=== PATIENT | male | born 1940 | race African-American/Black ===

== ENCOUNTER 2017-11-19 19:19 | Emergency (ER) | payer SELFPAY ==
[~2017-11-19] VITALS: Ht 165.1 cm; Wt 165.0 kg
[2017-11-19 23:59] VITALS: BP 144/75
== END 2017-11-20 00:01 | disposition home or self-care (01) ==
LOC: ER 19:19
DX: H61.21 Impacted cerumen, right ear (principal); I10 Essential (primary) hypertension
CPT/HCPCS: 69210; 99284

== ENCOUNTER 2019-12-13 19:34 | Inpatient (IN) | payer MEDICAID ==
[~2019-12-13] VITALS: Ht 177.8 cm; Wt 83.9 kg
[2019-12-13] MEDS ORDERED: SODIUM CHLORIDE 0.9% 1,000 ML IV ONE (21:10)
[2019-12-13] MEDS ORDERED: KETOROLAC 30MG/ML VIAL IV STA (21:10)
[2019-12-13 21:51] LABS: CHLORIDE 112 mEq/L (98-107); HEMATOCRIT. 48.1 % (42.0-52.0); HEMOGLOBIN. 15.6 g/dL (14.0-18.0); MEAN CORPUSCULAR HEMOGLOBIN 21.7 pg (28.0-32.0); MEAN CORPUSCULAR VOLUME 67.1 fL (80.0-94.0); MEAN PLATELET VOLUME 8.3 fl (7.4-10.4); PLATELET 181 x1000/uL (130-400); RED BLOOD CELL COUNT 7.17 mill/uL (4.7-6.1); RED CELL DISTRIBUTION WIDTH 17.4 % (11.6-14.6)
[2019-12-13 21:56] LABS: INR 1.1; PROTHROMBIN TIME 11.2 sec (9.6-11.0)
[2019-12-13 22:33] LABS: PLATELET ESTIMATE NORMAL
[2019-12-13] MEDS ORDERED: APIXABAN 5 MG TABLET PO STA (23:48)
[2019-12-14 00:09] LABS: CLARITY URINE CLEAR (CLEAR); COLOR URINE YELLOW (YELLOW); KETONES URINE NEGATIVE (NEGATIVE); LEUKOCYTE ESTERASE URINE NEGATIVE (NEGATIVE); NITRITE URINE NEGATIVE (NEGATIVE); OCCULT BLOOD URINE NEGATIVE (NEGATIVE); PROTEIN URINE NEGATIVE (NEGATIVE); UROBILINOGEN URINE 0.2 E.U./dL (0.2-1.0)
[2019-12-14] MEDS ORDERED: ONDANSETRON HCL 4MG/2ML INJ IV PRN (00:15)
[2019-12-14] MEDS ORDERED: ACETAMINOPHEN 325MG TABLET PO PRN ×2 (00:15)
[2019-12-14] MEDS ORDERED: LORAZEPAM 0.5MG TABLET PO PRN (00:15)
[2019-12-14] MEDS ORDERED: DOCUSATE SODIUM 100MG CAPSULE PO PRN (00:15)
[2019-12-14] MEDS ORDERED: IPRATROPIUM/ALBUTEROL 0.5-3(2.5)MG/3ML NEB HHN PRN (00:15)
[2019-12-14 08:30] VITALS: BP 142/76
[2019-12-14] MEDS ORDERED: APIXABAN 5 MG TABLET PO SCH (09:00)
[2019-12-14 12:02] VITALS: BP 139/91
[2019-12-14] MEDS ORDERED: HEPARIN 25,000 UNITS PREMIX 250 ML IV SCH (13:30)
[2019-12-14 15:27] LABS: INR 1.2; PARTIAL THROMBOPLASTIN TIME 31.8 sec (23.4-31.0); PROTHROMBIN TIME 12.3 sec (9.6-11.0)
[2019-12-14 15:59] VITALS: BP_SYST 129; BP_SYST 139; BP_DIAS 54; BP_DIAS 91
[2019-12-14 20:00] VITALS: BP 128/77
[2019-12-14] MEDS ORDERED: HEPARIN 25,000 UNITS PREMIX 250 ML IV PRN (21:00)
[2019-12-14] MEDS ORDERED: HEPARIN 5000 UNITS/ML VIAL IV PRN ×2 (21:00)
[2019-12-15] VITALS (7 sets, daily range): BP systolic 131–162; BP diastolic 70–86
[2019-12-15 04:09] LABS: BASOPHILS % 1.4 % (0.0-2.0); EOSINOPHILS % 4.7 % (0.0-5.0); HEMOGLOBIN. 14.7 g/dL (14.0-18.0); LYMPHOCYTES % 15.1 % (20.0-50.0); MEAN CORPUSCULAR HEMOGLOBIN 21.3 pg (28.0-32.0); MEAN CORPUSCULAR VOLUME 66.8 fL (80.0-94.0); MEAN PLATELET VOLUME 7.9 fl (7.4-10.4); MONOCYTES % 4.6 % (2.0-8.0); NEUTROPHILS % 74.2 % (40.0-76.0); PLATELET 188 x1000/uL (130-400); RED BLOOD CELL COUNT 6.89 mill/uL (4.7-6.1); RED CELL DISTRIBUTION WIDTH 17.5 % (11.6-14.6)
[2019-12-15 04:22] LABS: PLATELET ESTIMATE NORMAL
[2019-12-15 04:30] LABS: PHOSPHORUS 3.9 mg/dL (2.5-4.9)
[2019-12-15] MEDS: HYDROCODONE/ACETAMINOPHEN 5/325MG TABLET PO PRN (08:59)
[2019-12-15] MEDS: APIXABAN 5 MG TABLET PO SCH ×2 (11:29→17:27)
[2019-12-15] MEDS: AMLODIPINE 5MG TABLET PO SCH (11:29)
[2019-12-16] VITALS (54 sets, daily range): BP systolic 131–178; BP diastolic 61–99
[2019-12-16 07:44] LABS: BASOPHILS % 0.4 % (0.0-2.0); EOSINOPHILS % 3.4 % (0.0-5.0); HEMATOCRIT. 47.1 % (42.0-52.0); HEMOGLOBIN. 14.8 g/dL (14.0-18.0); LYMPHOCYTES % 15.1 % (20.0-50.0); MEAN CORPUSCULAR HEMOGLOBIN 21.4 pg (28.0-32.0); MEAN PLATELET VOLUME 8.3 fl (7.4-10.4); MONOCYTES % 4.6 % (2.0-8.0); NEUTROPHILS % 76.5 % (40.0-76.0); PLATELET 201 x1000/uL (130-400); RED BLOOD CELL COUNT 6.91 mill/uL (4.7-6.1); RED CELL DISTRIBUTION WIDTH 17.6 % (11.6-14.6)
[2019-12-16] MEDS: APIXABAN 5 MG TABLET PO SCH (07:45)
[2019-12-16 08:05] LABS: PHOSPHORUS 3.5 mg/dL (2.5-4.9)
[2019-12-16] MEDS ORDERED: ALTEPLASE 100MG/VIAL IV ONE ×2 (08:30)
[2019-12-16] MEDS: AMLODIPINE 5MG TABLET PO SCH (08:53)
[2019-12-16] MEDS ORDERED: SODIUM BICARBONATE 4% (2.4MEQ) 5ML VIAL IV ONE (09:03)
[2019-12-16] MEDS ORDERED: LIDOCAINE HCL 1% 20ML VIAL (Pyxis) INJ ONE (09:04)
[2019-12-16] MEDS ORDERED: IOHEXOL-300 100 ML BOTTLE ONE (09:04)
[2019-12-16] MEDS ORDERED: ALTEPLASE INJ SCH (10:00)
[2019-12-16] MEDS ORDERED: SODIUM CHLORIDE 0.9% INJ SCH (10:00)
[2019-12-16] MEDS ORDERED: FENTANYL CITRATE/PF 50MCG/ML 2ML VIAL ONE ×2 (10:10→11:18)
[2019-12-16] MEDS ORDERED: FENTANYL CITRATE/PF 50MCG/ML 2ML VIAL IV ONE ×2 (11:15→12:15)
[2019-12-16] MEDS: ALTEPLASE INJ SCH ×4 (13:23→20:35)
[2019-12-16] MEDS: SODIUM CHLORIDE 0.9% INJ SCH ×4 (13:23→20:35)
[2019-12-16] MEDS: HEPARIN 25,000 UNITS PREMIX 250 ML IV SCH (13:28)
[2019-12-16] MEDS: HYDROCODONE/ACETAMINOPHEN 5/325MG TABLET PO PRN ×2 (17:31→21:15)
[2019-12-16 19:28] LABS: BASOPHILS % 0.3 % (0.0-2.0); EOSINOPHILS % 1.7 % (0.0-5.0); HEMATOCRIT. 46.8 % (42.0-52.0); LYMPHOCYTES % 7.6 % (20.0-50.0); MEAN CORPUSCULAR HEMOGLOBIN 21.7 pg (28.0-32.0); MEAN CORPUSCULAR VOLUME 67.7 fL (80.0-94.0); MEAN PLATELET VOLUME 8.5 fl (7.4-10.4); MONOCYTES % 3.3 % (2.0-8.0); NEUTROPHILS % 87.1 % (40.0-76.0); PLATELET 183 x1000/uL (130-400); RED BLOOD CELL COUNT 6.91 mill/uL (4.7-6.1); RED CELL DISTRIBUTION WIDTH 17.8 % (11.6-14.6)
[2019-12-16 20:36] LABS: INR 1.1; PARTIAL THROMBOPLASTIN TIME 33.1 sec (23.4-31.0); PROTHROMBIN TIME 11.7 sec (9.6-11.0)
[2019-12-17] VITALS (52 sets, daily range): BP systolic 132–189; BP diastolic 68–119
[2019-12-17 00:55] LABS: BASOPHILS % 0.3 % (0.0-2.0); EOSINOPHILS % 1.7 % (0.0-5.0); HEMATOCRIT. 45.5 % (42.0-52.0); HEMOGLOBIN. 14.6 g/dL (14.0-18.0); LYMPHOCYTES % 9.2 % (20.0-50.0); MEAN CORPUSCULAR HEMOGLOBIN 21.9 pg (28.0-32.0); MEAN CORPUSCULAR VOLUME 68.4 fL (80.0-94.0); MEAN PLATELET VOLUME 7.7 fl (7.4-10.4); MONOCYTES % 4.4 % (2.0-8.0); NEUTROPHILS % 84.4 % (40.0-76.0); PLATELET 166 x1000/uL (130-400); RED BLOOD CELL COUNT 6.65 mill/uL (4.7-6.1); RED CELL DISTRIBUTION WIDTH 17.5 % (11.6-14.6)
[2019-12-17 00:58] LABS: INR 1.2; PARTIAL THROMBOPLASTIN TIME 35.9 sec (23.4-31.0); PROTHROMBIN TIME 12.3 sec (9.6-11.0)
[2019-12-17] MEDS: SODIUM CHLORIDE 0.9% INJ SCH ×5 (06:25→16:59)
[2019-12-17] MEDS: ALTEPLASE INJ SCH ×5 (06:25→16:59)
[2019-12-17 07:03] LABS: BASOPHILS % 0.5 % (0.0-2.0); EOSINOPHILS % 1.8 % (0.0-5.0); HEMATOCRIT. 44.6 % (42.0-52.0); HEMOGLOBIN. 14.4 g/dL (14.0-18.0); LYMPHOCYTES % 10.4 % (20.0-50.0); MEAN CORPUSCULAR HEMOGLOBIN 21.6 pg (28.0-32.0); MEAN PLATELET VOLUME 8.5 fl (7.4-10.4); MONOCYTES % 4.8 % (2.0-8.0); NEUTROPHILS % 82.5 % (40.0-76.0); PLATELET 179 x1000/uL (130-400); RED BLOOD CELL COUNT 6.65 mill/uL (4.7-6.1); RED CELL DISTRIBUTION WIDTH 17.6 % (11.6-14.6)
[2019-12-17 07:11] LABS: INR 1.1; PROTHROMBIN TIME 11.9 sec (9.6-11.0)
[2019-12-17 07:15] LABS: PHOSPHORUS 3.2 mg/dL (2.5-4.9)
[2019-12-17] MEDS: HYDROCODONE/ACETAMINOPHEN 5/325MG TABLET PO PRN ×2 (07:25→21:16)
[2019-12-17] MEDS: AMLODIPINE 10MG TABLET PO SCH (09:00)
[2019-12-17] MEDS ORDERED: SODIUM BICARBONATE 4% (2.4MEQ) 5ML VIAL IV ONE (13:51)
[2019-12-17] MEDS ORDERED: LIDOCAINE HCL 1% 20ML VIAL (Pyxis) INJ ONE (13:51)
[2019-12-17] MEDS ORDERED: IOHEXOL-300 100 ML BOTTLE ONE (13:53)
[2019-12-17] MEDS: HEPARIN 25,000 UNITS PREMIX 250 ML IV SCH (16:59)
[2019-12-17 17:40] LABS: INR 1.2; PROTHROMBIN TIME 12.4 sec (9.6-11.0)
[2019-12-17 21:32] LABS: BASOPHILS % 0.3 % (0.0-2.0); EOSINOPHILS % 2.1 % (0.0-5.0); HEMATOCRIT. 46.3 % (42.0-52.0); HEMOGLOBIN. 14.9 g/dL (14.0-18.0); LYMPHOCYTES % 10.6 % (20.0-50.0); MEAN CORPUSCULAR HEMOGLOBIN 21.8 pg (28.0-32.0); MEAN CORPUSCULAR VOLUME 67.6 fL (80.0-94.0); MEAN PLATELET VOLUME 8.1 fl (7.4-10.4); MONOCYTES % 5.4 % (2.0-8.0); NEUTROPHILS % 81.6 % (40.0-76.0); PLATELET 165 x1000/uL (130-400); RED BLOOD CELL COUNT 6.86 mill/uL (4.7-6.1); RED CELL DISTRIBUTION WIDTH 18.2 % (11.6-14.6)
[2019-12-17 21:38] LABS: PARTIAL THROMBOPLASTIN TIME 37.9 sec (23.4-31.0)
[2019-12-17] MEDS ORDERED: HALOPERIDOL LACTATE 5MG/ML VIAL IM PRN (21:45)
[2019-12-17] MEDS: CLONIDINE 0.1MG TABLET PO PRN (23:46)
[2019-12-18] VITALS (63 sets, daily range): BP systolic 105–156; BP diastolic 44–88
[2019-12-18] MEDS: SODIUM CHLORIDE 0.9% INJ SCH (01:45)
[2019-12-18] MEDS: ALTEPLASE INJ SCH (01:45)
[2019-12-18 07:16] LABS: BASOPHILS % 0.2 % (0.0-2.0); EOSINOPHILS % 2.1 % (0.0-5.0); HEMATOCRIT. 40.9 % (42.0-52.0); HEMOGLOBIN. 13.4 g/dL (14.0-18.0); LYMPHOCYTES % 11.7 % (20.0-50.0); MEAN CORPUSCULAR VOLUME 67.2 fL (80.0-94.0); MEAN PLATELET VOLUME 8.2 fl (7.4-10.4); MONOCYTES % 5.3 % (2.0-8.0); NEUTROPHILS % 80.7 % (40.0-76.0); PLATELET 153 x1000/uL (130-400); RED BLOOD CELL COUNT 6.08 mill/uL (4.7-6.1); RED CELL DISTRIBUTION WIDTH 17.9 % (11.6-14.6)
[2019-12-18 07:25] LABS: INR 1.2; PARTIAL THROMBOPLASTIN TIME 36.2 sec (23.4-31.0)
[2019-12-18 07:36] LABS: PHOSPHORUS 2.9 mg/dL (2.5-4.9)
[2019-12-18] MEDS: AMLODIPINE 10MG TABLET PO SCH (09:00)
[2019-12-18] MEDS ORDERED: SODIUM BICARBONATE 4% (2.4MEQ) 5ML VIAL IV ONE (11:06)
[2019-12-18] MEDS ORDERED: IOHEXOL-300 100 ML BOTTLE ONE (11:07)
[2019-12-18] MEDS ORDERED: LIDOCAINE HCL 1% 20ML VIAL (Pyxis) INJ ONE (11:07)
[2019-12-18] MEDS ORDERED: MIDAZOLAM HCL 5 MG/ML VIAL IV ONE (11:30)
[2019-12-18] MEDS ORDERED: FENTANYL CITRATE/PF 50MCG/ML 2ML VIAL IV ONE (11:30)
[2019-12-18] MEDS ORDERED: MIDAZOLAM HCL 2 MG/2 ML VIAL ONE (11:42)
[2019-12-18] MEDS ORDERED: FENTANYL CITRATE/PF 50MCG/ML 2ML VIAL ONE (11:42)
[2019-12-18] MEDS ORDERED: HYDRALAZINE 20MG/ML VIAL IV PRN (15:00)
[2019-12-18] MEDS: HYDROCODONE/ACETAMINOPHEN 5/325MG TABLET PO PRN ×2 (15:50→21:57)
[2019-12-18] MEDS ORDERED: ENOXAPARIN 100MG/ML SYR SUBCUT NR (17:00)
[2019-12-19] VITALS (41 sets, daily range): BP systolic 37–168; BP diastolic 20–87
[2019-12-19 06:57] LABS: HEMATOCRIT. 40.8 % (42.0-52.0); HEMOGLOBIN. 13.2 g/dL (14.0-18.0); MEAN CORPUSCULAR HEMOGLOBIN 21.9 pg (28.0-32.0); MEAN CORPUSCULAR VOLUME 67.6 fL (80.0-94.0); MEAN PLATELET VOLUME 7.9 fl (7.4-10.4); PLATELET 163 x1000/uL (130-400); RED BLOOD CELL COUNT 6.04 mill/uL (4.7-6.1); RED CELL DISTRIBUTION WIDTH 17.9 % (11.6-14.6)
[2019-12-19 08:38] LABS: PLATELET ESTIMATE NORMAL
[2019-12-19] MEDS: APIXABAN 5 MG TABLET PO SCH ×2 (08:58→17:45)
[2019-12-19] MEDS: AMLODIPINE 10MG TABLET PO SCH (08:59)
[2019-12-19] MEDS: HYDROCODONE/ACETAMINOPHEN 5/325MG TABLET PO PRN ×3 (12:59→23:19)
[2019-12-19] MEDS: HYDRALAZINE HCL 50MG TABLET PO SCH (20:23)
[2019-12-19] MEDS ORDERED: CLONIDINE 0.1MG TABLET PO SCH (22:00)
[2019-12-19] MEDS: CLONIDINE 0.1MG TABLET PO PRN (23:43)
[2019-12-20] VITALS (11 sets, daily range): BP systolic 126–171; BP diastolic 60–78
[2019-12-20] MEDS: HYDROCODONE/ACETAMINOPHEN 5/325MG TABLET PO PRN ×3 (03:57→17:17)
[2019-12-20 08:17] LABS: HEMATOCRIT. 39.5 % (42.0-52.0); HEMOGLOBIN. 12.6 g/dL (14.0-18.0); MEAN CORPUSCULAR HEMOGLOBIN 21.7 pg (28.0-32.0); MEAN CORPUSCULAR VOLUME 68.1 fL (80.0-94.0); MEAN PLATELET VOLUME 8.4 fl (7.4-10.4); PLATELET 184 x1000/uL (130-400)
[2019-12-20] MEDS: HYDRALAZINE HCL 50MG TABLET PO SCH ×2 (08:40→20:56)
[2019-12-20] MEDS: AMLODIPINE 10MG TABLET PO SCH (08:41)
[2019-12-20] MEDS: APIXABAN 5 MG TABLET PO SCH ×2 (08:41→17:01)
[2019-12-20 09:57] LABS: PHOSPHORUS 2.7 mg/dL (2.5-4.9)
[2019-12-20 18:01] LABS: PLATELET ESTIMATE NORMAL
[2019-12-21] VITALS (7 sets, daily range): BP systolic 124–152; BP diastolic 66–74
[2019-12-21] MEDS: HYDROCODONE/ACETAMINOPHEN 5/325MG TABLET PO PRN (05:47)
[2019-12-21 06:01] LABS: HEMATOCRIT. 37.8 % (42.0-52.0); HEMOGLOBIN. 12.3 g/dL (14.0-18.0); MEAN CORPUSCULAR HEMOGLOBIN 21.9 pg (28.0-32.0); MEAN CORPUSCULAR VOLUME 67.4 fL (80.0-94.0); MEAN PLATELET VOLUME 8.2 fl (7.4-10.4); PLATELET 208 x1000/uL (130-400); RED BLOOD CELL COUNT 5.61 mill/uL (4.7-6.1); RED CELL DISTRIBUTION WIDTH 17.9 % (11.6-14.6)
[2019-12-21] MEDS: APIXABAN 5 MG TABLET PO SCH ×2 (08:50→17:27)
[2019-12-21] MEDS: HYDRALAZINE HCL 50MG TABLET PO SCH (08:50)
[2019-12-21] MEDS: AMLODIPINE 10MG TABLET PO SCH (08:50)
[2019-12-21] MEDS ORDERED: APIXABAN 5 MG TABLET PO SCH (09:00)
[2019-12-21] MEDS ORDERED: LOV40 SQ (12:20)
[2019-12-21] MEDS ORDERED: HYDR-4001 PO (12:20)
[2019-12-21] MEDS ORDERED: AMLO10TA80 PO (12:20)
[2019-12-21] MEDS ORDERED: APIX5TAB MT (12:20)
[2019-12-21] MEDS ORDERED: HYDR-4135 PO (12:20)
[2019-12-21 17:22] LABS: PLATELET ESTIMATE NORMAL
[2019-12-21] MEDS ORDERED: ENOXAPARIN 80MG/0.8ML SYR SUBCUT SCH (21:00)
[2019-12-22] MEDS ORDERED: APIXABAN 5 MG TABLET PO SCH (09:00)
[2019-12-26] MEDS ORDERED: APIXABAN 5 MG TABLET PO SCH (09:00)
== END 2019-12-21 19:10 | disposition home health service (06) | DRG 197 ==
LOC: ER 19:34 → 6WST 23:50 → ENRESERV 12-14 07:35 → CVICU 12-16 13:16 → 5EST 12-19 22:28
PROVIDERS: ADMIT Internal Medicine; ATTEND Internal Medicine
PROC: B51DZZZ Fluoroscopy of Bilateral Lower Extremity Veins (ICD-10-PCS; principal; 2019-12-16)
PROC: 6A751Z6 Ultrasound Therapy of Peripheral Vessels, Multiple (ICD-10-PCS; 2019-12-16)
PROC: 3E05317 Introduction of Other Thrombolytic into Peripheral Artery, Percutaneous Approach (ICD-10-PCS; 2019-12-16)
DX: I82.403 Acute embolism and thrombosis of unspecified deep veins of lower extremity, bilateral (principal); N17.9 Acute kidney failure, unspecified; E87.5 Hyperkalemia; N13.30 Unspecified hydronephrosis; E78.00 Pure hypercholesterolemia, unspecified; E78.5 Hyperlipidemia, unspecified; N28.1 Cyst of kidney, acquired; I12.9 Hypertensive chronic kidney disease with stage 1 through stage 4 chronic kidney disease, or unspecified chronic kidney disease; N40.0 Benign prostatic hyperplasia without lower urinary tract symptoms; M79.89 Other specified soft tissue disorders; D68.59 Other primary thrombophilia; R79.89 Other specified abnormal findings of blood chemistry; R00.1 Bradycardia, unspecified; D64.9 Anemia, unspecified; N18.3 Chronic kidney disease, stage 3 (moderate); Z82.49 Family history of ischemic heart disease and other diseases of the circulatory system; Z90.79 Acquired absence of other genital organ(s)
CPT/HCPCS: 36415; 37211; 37248; 37249; 71045; 74176; 75898; 76770; 76937; 80048; 80053; 80061; 81003; 82550; 83036; 83605; 83615; 83735; 84100; 84153; 84443; 85025; 85384; 93005; 93970; 97116; 97162; 97166; 99152; 99153; 99285; C1714; C1725; C1766; C1769; C1887; J1644; J1650; J1885; J2250; J2997; J3010; J3490; J7030; J7050; L1830; Q9967; G0103; G0500